=== PATIENT | female | born 1955 | race Caucasian/White ===

== ENCOUNTER 2017-11-09 14:14 | Emergency (ER) | payer OTHER ==
[~2017-11-09] VITALS: Ht 177.8 cm; Wt 72.6 kg
[2017-11-09] MEDS ORDERED: ATARAX10 MG PO (14:34)
[2017-11-09] MEDS ORDERED: LEXAPRO5 MG (14:34)
== END 2017-11-09 18:20 | disposition home or self-care (01) ==
LOC: ER 14:14
DX: S05.01XA Injury of conjunctiva and corneal abrasion without foreign body, right eye, initial encounter (principal); W26.8XXA Contact with other sharp object(s), not elsewhere classified, initial encounter; Y93.89 Activity, other specified; Y92.098 Other place in other non-institutional residence as the place of occurrence of the external cause; Y99.8 Other external cause status

== ENCOUNTER 2021-09-28 11:06 | Inpatient (IN) | payer OTHER ==
[~2021-09-28] VITALS: Ht 177.8 cm; Wt 72.6 kg
[~2021-09-28 11:06] MED LIST: ATARAX10 MG PO; LEXAPRO5 MG
== END 2021-10-03 18:08 | disposition home or self-care (01) | DRG 372 ==
LOC: ER 11:06 → MEDI 09-29 02:40
PROVIDERS: ADMIT Internal Medicine; ATTEND Internal Medicine
DX: A04.72 Enterocolitis due to Clostridium difficile, not specified as recurrent (principal); E87.2 Acidosis; E87.6 Hypokalemia; Z20.822 Contact with and (suspected) exposure to COVID-19; F95.2 Tourette's disorder

== ENCOUNTER 2022-07-13 08:42 | Emergency (ER) | payer OTHER ==
[~2022-07-13] VITALS: Ht 180.3 cm; Wt 88.5 kg
[2022-07-13] MEDS ORDERED: HORIZANT300 MG PO (08:51)
[2022-07-13] MEDS ORDERED: ONDANSETRON ODT8 MG PO (14:17)
[2022-07-13] MEDS ORDERED: PEPCID AC20 MG PO (14:17)
== END 2022-07-13 14:28 | disposition home or self-care (01) ==
LOC: ER 08:42
DX: R10.9 Unspecified abdominal pain (principal); R11.0 Nausea; R11.10 Vomiting, unspecified; A04.4 Other intestinal Escherichia coli infections; Z88.5 Allergy status to narcotic agent